=== PATIENT | female | born 1995 | race Caucasian/White ===

== ENCOUNTER 2018-11-04 14:21 | Emergency (ER) | payer OTHER | END 2018-11-04 17:05 | disposition home or self-care (01) | LOC: ERS 14:21 | DX: R51 Headache (principal) | CPT/HCPCS: 99283 ==

== ENCOUNTER 2019-03-23 20:42 | Emergency (ER) | payer BC, SELFPAY ==
[2019-03-23 21:19] LABS: #Eosinphils 0.1 thou/uL (0.0-0.7); #Lymphocytes 2.7 thou/uL (1.20-3.40); #Monocytes 0.7 thou/uL (0.11-0.59); #Neutrophils 6.8 thou/uL (1.40-6.50); %Basophils 0.3 % (0.0-1.0); %Eosinophils 1.3 % (0.0-10.0); %Lymphocytes 25.8 % (21.0-51.0); %Neutrophils 65.7 % (42.0-75.0); Hemoglobin 12.8 g/dL (12.0-16.0); Mean Corpuscular HGB CONC 33.1 g/dL (32.0-36.0); Mean Corpuscular Volume 90.6 fL (78.0-98.0); Mean Platelet Volume 8.4 fL (7.4-10.4); Platelet Count 230 thou/uL (130-400); RBC Distribution Width 12.2 % (11.5-14.5); Red Blood Cell (RBC) Count 4.27 mill/uL (4.20-5.40); White Blood Cell (WBC) Count 10.3 thou/uL (4.8-10.8)
[2019-03-23] MEDS ORDERED: Mag-Al 1200 mg/1200 mg/30 ML UDCUP ONE (21:46)
[2019-03-23] MEDS ORDERED: Lidocaine Viscous Sol 2% 15 ml UD Cup ONE (21:46)
[2019-03-23 21:58] LABS: ALT (SGPT) 48 U/L (8-55); AST (SGOT) 60 U/L (5-34); Albumin 4.3 g/dL (3.5-5.0); Alkaline Phosphatase 84 U/L (40-110); Anion Gap 15 mmol/L (10-20); Bilirubin, Total 0.5 mg/dL (0.2-1.2); Calc. Creatinine Clearance 0 mL/min (70-130); Calcium 9.2 mg/dL (7.8-10.44); Carbon Dioxide 24 mmol/L (22-29); Chloride 105 mmol/L (98-107); Estimated GFR-MDRD 86; Globulin 3.2 g/dL (2.4-3.5); Glucose 124 mg/dL (70-105); Lipase 18 U/L (8-78); Potassium 3.5 mmol/L (3.5-5.1); Protein, Total 7.5 g/dL (6.0-8.3); Sodium 140 mmol/L (136-145)
[2019-03-23 22:37] LABS: BUN (Urea Nitrogen) 11 mg/dL (7.0-18.7)
== END 2019-03-23 22:26 | disposition home or self-care (01) ==
LOC: ERS 20:42
DX: R10.13 Epigastric pain (principal)
CPT/HCPCS: 36415; 80053; 83690; 85025; 93005

== ENCOUNTER 2019-07-06 17:30 | Emergency (ER) | payer BC, SELFPAY | END 2019-07-06 18:29 | disposition home or self-care (01) | LOC: ERS 17:30 | DX: O99.89 Other specified diseases and conditions complicating pregnancy, childbirth and the puerperium (principal); R51 Headache; O99.611 Diseases of the digestive system complicating pregnancy, first trimester; K21.9 Gastro-esophageal reflux disease without esophagitis; Z3A.12 12 weeks gestation of pregnancy | CPT/HCPCS: 99283 ==

== ENCOUNTER 2019-07-23 14:38 | Emergency (ER) | payer SELFPAY ==
[2019-07-23 15:38] LABS: #Eosinphils 0.1 thou/uL (0.0-0.7); #Lymphocytes 2.3 thou/uL (1.20-3.40); #Monocytes 0.6 thou/uL (0.11-0.59); #Neutrophils 9.1 thou/uL (1.40-6.50); %Basophils 0.1 % (0.0-1.0); %Eosinophils 0.8 % (0.0-10.0); %Lymphocytes 18.8 % (21.0-51.0); %Monocytes 4.7 % (0.0-10.0); %Neutrophils 75.7 % (42.0-75.0); Hemoglobin 12.5 g/dL (12.0-16.0); Mean Corpuscular HGB CONC 32.9 g/dL (32.0-36.0); Mean Corpuscular Hemoglobin 30.3 pg (27.0-31.0); Mean Corpuscular Volume 92.2 fL (78.0-98.0); Platelet Count 214 thou/uL (130-400); RBC Distribution Width 12.2 % (11.5-14.5); Red Blood Cell (RBC) Count 4.11 mill/uL (4.20-5.40)
[2019-07-23 15:55] LABS: ALT (SGPT) 17 U/L (8-55); AST (SGOT) 17 U/L (5-34); Albumin 3.9 g/dL (3.5-5.0); Alkaline Phosphatase 69 U/L (40-110); Anion Gap 14 mmol/L (10-20); BUN (Urea Nitrogen) 10 mg/dL (7.0-18.7); Bilirubin, Total 0.3 mg/dL (0.2-1.2); Calc. Creatinine Clearance 0 mL/min (70-130); Calcium 9.6 mg/dL (7.8-10.44); Carbon Dioxide 21 mmol/L (22-29); Chloride 104 mmol/L (98-107); Estimated GFR-MDRD Greater than 90; Globulin 3.4 g/dL (2.4-3.5); Glucose 128 mg/dL (70-105); Lipase 31 U/L (8-78); Potassium 3.9 mmol/L (3.5-5.1); Protein, Total 7.3 g/dL (6.0-8.3); Sodium 135 mmol/L (136-145)
--- NOTE | 2019-07-23 15:59 | ULT ---
Sonogram right upper quadrant HISTORY: Right upper quadrant pain. FINDINGS: Normal gallbladder not seen. At the gallbladder fossa, an echogenicity is present with post erior shadowing. This could represent the duodenum/gas or a gallbladder contracted around shadowing stones. No gallbladder wall thickening or pericholecystic fluid. Common duct is 0.3 cm. Liver is unremarkable without focal mass or intrahepatic biliary dilatation. No free fluid. IMPRESSION : Abnormality at the gallbladder fossa is were favored to represent gallstones within a nondistended ga llbladder. No evidence of acute biliary obstruction.
--- NOTE | 2019-07-26 13:49 | EKG ---
Test Reason : EPIGASTRIC PAIN Blood Pressure : / mmHG Vent. Rate : 102 BPM Atrial Rate : 102 BPM P-R Int : 146 ms QRS Dur : 078 ms QT Int : 352 ms P-R-T Axes : 000 165 158 degrees QTc Int : 458 ms Sinus tachycardia Right axis deviation Abnormal ECG Confirmed by JESSE HERCULES, SIVAKUMAR ([id number]), graphics editor LUDA HENRIQUEZ ([id number]) on 07/26/2019 1:48:27 PM [facility] Confirmed By:SIVAKUMAR MOLINA MD
== END 2019-07-23 16:32 | disposition home or self-care (01) ==
LOC: ERS 14:38
DX: O99.611 Diseases of the digestive system complicating pregnancy, first trimester (principal); K80.80 Other cholelithiasis without obstruction; K21.9 Gastro-esophageal reflux disease without esophagitis; Z3A.13 13 weeks gestation of pregnancy
CPT/HCPCS: 36415; 76705; 80053; 83690; 85025; 93005; 94760; 96360

== ENCOUNTER 2019-10-27 20:34 | Day surgery (SDC) | payer SELFPAY ==
[2019-10-27 21:54] VITALS: BP 111/66; TEMP 98.6; BMI 48.0
[2019-10-27] MEDS ORDERED: hydrALAZINE 20 MG/ML VIAL SLOW IVP PRN (21:57)
--- NOTE | 2019-10-27 23:44 | PDOC.LDHP ---
Labor and Delivery H&P Chief complaint: loss of fluid HPI: 23 y/o @ 26.5 wks presents after sudden LOF per vagina at 12 today. she states she was taking a nap when suddenly she had a gush of fluids per vagina. she does not know if this was urine or ROM. she states it did not smell of urine. Pt denies nay further leaking of fluids per vagina after this event. denies vag bleeding, vag discharge/irritation/pain. last intercourse was >24 hours ago and pt and partner state any time between 3- 5 days ago, but for sure not in the last 24 hours. reports good movements. c/o cramping located over lower abdomen that radiates straight down. Denies Vazquez, CP, SOB, fevers. PCP: Dr. Maguire. Current gestational age (weeks): 26 (5 days ) Grav: 2 Para: 1 OB History Details: Preg #1: 4 years ago @ 37 wks Current complications: none Past Medical History: idiopathic intracranial HTN Cholelithiasis Current medications: pre- vitamins Previous surgical history: none Allergies/Adverse Reactions: Allergies Allergy/AdvReac Type Severity Reaction Status Date / Time amoxicillin Allergy Verified 07/07/19 14:42 Social history: none - Physical Exam Vital signs reviewed and normal: yes General: NAD, resting, breathing through contractions Heart: RRR Lungs: CTAB Abdomen: gravid Extremeties: no edema FHT: variability present Amery contractions every: non present on TOCO - Vaginal Exam cm dilated: 0 Effacement: 0% Station: -3 - OB Labs GBS: positive (UTI colonized in current ) - Assessment 23 y/o @ 26.5 wk 1. sIUP @ 26.5 wks - no ccx on 20 minute - 20 min fht strip reassuring. 2. Objective LOF - FFN ordered. collected VP3, Gc/C. will f/u with results - Sterile spec exam performed: no pooling of fluids on valsalva, yellow d/c. - not suspecting ROM. will f/u with pt on results. 3. lower abd pain with cramping - UA with reflex ccx - will f/u on results and ccx Dispo: will d/c home and follow up on results via phone. low clinical suspicion for PPROM. Care plan discussed with Dr. Paul, who is in agreement with above stated plan. Addendum - Attending - Attending Attestation Date/Time: 10/30/19 7240 I personally evaluated the patient and discussed the management with Dr. Todd I agree with the History, Examination, Assessment and Plan documented above with any addition or exceptions noted below. FFN, UA, VP3 NEg. Pt has been called and results shared.
[2019-10-28 00:34] LABS: FFN Internal QC Analyzer PASS (PASS); FFN Internal QC Cassette PASS (PASS); Fetal Fibronectin Negative (Negative)
[2019-10-28 00:47] LABS: Bacteria/HPF None Seen HPF (None Seen); Bilirubin Negative (Negative); Blood, Urine Negative (Negative); Clarity Clear (Clear); Glucose, Urine (Dipstick) Normal (Negative); Ketone, Urine Negative (Negative); Leukocyte Negative Leu/uL (Negative); Nitrite Negative (Negative); Protein, Urine (Dipstick) 10 mg/dL (Neg-Trace); RBC/HPF 0-3 HPF (0-3); Specific Gravity, Urine 1.025 (1.002-1.036); Squamous Epithelial 0-3 HPF (0-3); Urobilinogen Normal mg/dL (Less than 2)
[2019-10-28 00:49] LABS: Urine Culture Reflex Yes Yes
--- NOTE | 2019-10-28 01:23 | PDOC.BPN ---
- Brief Progress Note care plan discussed with Dr. Paul, who opted to d/c pt home with f/u on results of FFN, UA, VP3, GC/C. Pt d/c home in good condition. return precautions given. f/u with pcp in 2-3 days.
== END 2019-10-28 00:40 | disposition home or self-care (01) ==
LOC: L&D/OP 20:34
PROVIDERS: ATTEND Obstetrics & Gynecology
DX: O99.89 Other specified diseases and conditions complicating pregnancy, childbirth and the puerperium (principal); N89.8 Other specified noninflammatory disorders of vagina; R10.30 Lower abdominal pain, unspecified; O99.820 Streptococcus B carrier state complicating pregnancy; Z3A.26 26 weeks gestation of pregnancy; Z88.0 Allergy status to penicillin
CPT/HCPCS: 81001; 82731; 87086; 87480; 87491; 87510; 87591; 87660

== ENCOUNTER 2020-01-17 07:31 | Inpatient (IN) | payer OTHER ==
[2020-01-17 08:08] VITALS: BMI 50.4
[2020-01-17] MEDS ORDERED: Ondansetron PF 4 MG/2 ML Vial IVP PRN ×4 (08:27→14:33)
[2020-01-17] MEDS ORDERED: Butorphanol Tartrate 1 MG/ML VIAL SLOW IVP PRN (08:27)
[2020-01-17] MEDS ORDERED: Methylergonovine 0.2 MG/ML VIAL IM PRN (08:27)
[2020-01-17] MEDS ORDERED: Carboprost 250 MCG/ML AMP IM PRN (08:27)
[2020-01-17] MEDS ORDERED: Misoprostol 200 MCG TAB PR PRN (08:27)
[2020-01-17] MEDS ORDERED: NS / Oxytocin 40 units/1000ml 1,000 ML IV PRN (08:27)
[2020-01-17] MEDS ORDERED: Acetaminophen 500 MG TAB PO PRN (08:27)
[2020-01-17] MEDS ORDERED: Diphenoxylate HCl/Atropine Tablet PO PRN ×2 (08:27)
[2020-01-17] MEDS ORDERED: Lidocaine 1% (PF) 30 ML VIAL SC PRN (08:27)
[2020-01-17] MEDS ORDERED: hydrALAZINE 20 MG/ML VIAL SLOW IVP PRN ×2 (08:27→14:33)
[2020-01-17] MEDS ORDERED: Promethazine HCl 25 MG/ML VIAL IM PRN ×3 (08:27→10:20)
[2020-01-17] MEDS ORDERED: HYDROcodone/Acetaminophen 5/325 mg Tablet PO PRN ×4 (08:27→14:33)
[2020-01-17] MEDS ORDERED: Ibuprofen 800 MG TAB PO PRN (08:27)
[2020-01-17] MEDS: Lactated Ringer's 1,000 ML IV SCH ×2 (08:36→10:13)
[2020-01-17] MEDS ORDERED: NS w/ Oxytocin 10 units 500 ML IV SCH (08:45)
[2020-01-17] MEDS ORDERED: Clindamycin/D5W 900 mg/50 ml Premix Bag ONE (09:10)
[2020-01-17 09:31] LABS: Hemoglobin 12.2 g/dL (12.0-16.0); Mean Corpuscular HGB CONC 33.8 g/dL (32.0-36.0); Mean Corpuscular Hemoglobin 30.8 pg (27.0-31.0); Mean Corpuscular Volume 91.1 fL (78.0-98.0); Mean Platelet Volume 9.6 fL (7.4-10.4); Platelet Count 169 thou/uL (130-400); RBC Distribution Width 13.3 % (11.5-14.5); Red Blood Cell (RBC) Count 3.96 mill/uL (4.20-5.40); White Blood Cell (WBC) Count 12.6 thou/uL (4.8-10.8)
[2020-01-17] MEDS ORDERED: Fentanyl 4 mcg/Bup 0.1% Cadd 100 ML ONE (09:42)
[2020-01-17 10:17] LABS: Syphilis Antibody Nonreactive (Nonreactive); Syphilis Antibody Index 0.05 S/CO (<1.00 Non-Reactive)
[2020-01-17 10:18] LABS: HBSAg Index 0.16 S/CO (0-0.99); Hep B Surf Ag Non-Reactive S/CO (NonReactive)
[2020-01-17] MEDS ORDERED: Naloxone HCl 0.4 mg/ml Vial IVP PRN ×2 (10:20)
[2020-01-17] MEDS ORDERED: diphenhydrAMINE 50 MG/ML VIAL IM PRN (10:20)
[2020-01-17] MEDS ORDERED: diphenhydrAMINE 25 MG CAP PO PRN ×2 (10:20→14:33)
[2020-01-17] MEDS ORDERED: Naloxone HCl 0.4 mg/ml Vial IV PRN (10:20)
[2020-01-17] MEDS ORDERED: Acetaminophen 325 MG TAB PO PRN (10:20)
[2020-01-17] MEDS ORDERED: Lactated Ringer's 500 ML IV PRN (10:20)
[2020-01-17] MEDS ORDERED: Zolpidem Tartrate 5 MG TAB PO PRN ×2 (10:20→14:33)
[2020-01-17] MEDS ORDERED: diphenhydrAMINE 50 MG/ML VIAL IVP PRN ×2 (10:20)
[2020-01-17] MEDS ORDERED: EPHEDRINE 25 MG/5 ML SYRINGE SLOW IVP PRN (10:20)
[2020-01-17] MEDS ORDERED: Fentanyl 4 mcg/Bupivacaine 0.1% Cassette 100 ML EPIDURAL SCH (10:30)
[2020-01-17] MEDS ORDERED: Communication Order-Pharmacy FS PRN (10:30)
[2020-01-17] MEDS ORDERED: Communication Order-Pharmacy FS SCH (10:30)
[2020-01-17] MEDS ORDERED: Bupivacaine 0.25% HCL 30 ML VIAL ONE (11:30)
[2020-01-17] MEDS ORDERED: Clindamycin/D5W 900 MG in Premix Bag 1 BAG IVPB SCH (12:00)
[2020-01-17] MEDS ORDERED: Bisacodyl 10 MG SUPP PR PRN (14:33)
[2020-01-17] MEDS ORDERED: Milk Of Magnesia 30 ML UDCUP PO PRN (14:33)
[2020-01-17] MEDS ORDERED: Benzocaine-Menthol 82.5 ML CAN TOP PRN (14:33)
[2020-01-17] MEDS ORDERED: Misoprostol 200 MCG TAB VAG PRN (14:33)
[2020-01-17] MEDS ORDERED: Lanolin Ointment 7 GM TUBE TOP PRN (14:33)
[2020-01-17] MEDS ORDERED: Preparation H Ointment 28 GM TUBE PR PRN (14:33)
[2020-01-17] MEDS ORDERED: NS / Oxytocin 40 units/1000ml 1,000 ML IV SCH (14:45)
[2020-01-17] MEDS: Ferrous Sulfate 325 MG TAB PO SCH (18:04)
[2020-01-17] MEDS: Docusate Calcium (SURFAK) 240 MG CAP PO SCH (22:09)
[2020-01-17] MEDS: Ibuprofen 800 MG TAB PO SCH (22:09)
[2020-01-18] MEDS: Ibuprofen 800 MG TAB PO SCH ×2 (06:01→14:26)
[2020-01-18 06:42] LABS: Hemoglobin 12.2 g/dL (12.0-16.0); Mean Corpuscular HGB CONC 34.2 g/dL (32.0-36.0); Mean Corpuscular Hemoglobin 31.3 pg (27.0-31.0); Mean Corpuscular Volume 91.5 fL (78.0-98.0); Platelet Count 166 thou/uL (130-400); RBC Distribution Width 13.5 % (11.5-14.5); White Blood Cell (WBC) Count 12.3 thou/uL (4.8-10.8)
[2020-01-18] MEDS ORDERED: Prenatal Vitamin 1 TAB PO SCH (09:00)
[2020-01-18] MEDS: Docusate Calcium (SURFAK) 240 MG CAP PO SCH (09:03)
[2020-01-18] MEDS: Ferrous Sulfate 325 MG TAB PO SCH (09:06)
[2020-01-18 11:43] VITALS: BP 116/57; TEMP 98.5
[2020-01-18] MEDS ORDERED: Adacel (T-DAP) 0.5 ML SYRINGE IM ONE (14:33)
== END 2020-01-18 16:15 | disposition home or self-care (01) | DRG 806 ==
LOC: L&D/OP 07:31 → L&D 08:27 → 3SE 16:40
PROVIDERS: ADMIT Obstetrics & Gynecology; ATTEND Obstetrics & Gynecology
PROC: 10D07Z6 Extraction of Products of Conception, Vacuum, Via Natural or Artificial Opening (ICD-10-PCS; principal; 2020-01-17)
PROC: 10907ZC Drainage of Amniotic Fluid, Therapeutic from Products of Conception, Via Natural or Artificial Opening (ICD-10-PCS; 2020-01-17)
PROC: 0HQ9XZZ Repair Perineum Skin, External Approach (ICD-10-PCS; 2020-01-17)
DX: O24.429 Gestational diabetes mellitus in childbirth, unspecified control (principal); O98.82 Other maternal infectious and parasitic diseases complicating childbirth; Z37.0 Single live birth; O70.0 First degree perineal laceration during delivery; B95.1 Streptococcus, group B, as the cause of diseases classified elsewhere; Z3A.39 39 weeks gestation of pregnancy
CPT/HCPCS: 36415; 36416; 51702; 85027; 86780; 86850; 86900; 86901; 87340; 87635; 99285; J2001; J2405; J2590; J3490; S0020; U0003

== ENCOUNTER 2021-06-18 14:34 | Emergency (ER) | payer SELFPAY ==
[2021-06-18] MEDS ORDERED: Acetaminophen 500 MG TAB ONE (17:34)
[2021-06-18 18:18] LABS: Bilirubin Negative (Negative); Blood, Urine Negative (Negative); Clarity Clear (Clear); Glucose, Urine (Dipstick) Normal (Negative); Ketone, Urine Negative (Negative); Leukocyte 25 Leu/uL (Negative); Nitrite Negative (Negative); Protein, Urine (Dipstick) 10 mg/dL (Neg-Trace); RBC/HPF 0-3 HPF (0-3); Specific Gravity, Urine 1.024 (1.002-1.036); WBC/HPF 0-3 HPF (0-3)
[2021-06-18 18:19] LABS: Bacteria/HPF 1+ HPF (None Seen)
[2021-06-18 18:20] LABS: Pregnancy Test - Urine (BHCG) Negative (Negative); Pregu Control Background? CLEAR/WHITE (CLR/WHITE); Pregu Control Bar Appear? YES (CONTROL BAR); Specific Gravity 1.024 (1.002-1.036)
== END 2021-06-18 18:47 | disposition home or self-care (01) ==
LOC: ERS 14:34
DX: J10.1 Influenza due to other identified influenza virus with other respiratory manifestations (principal); K21.9 Gastro-esophageal reflux disease without esophagitis; G43.909 Migraine, unspecified, not intractable, without status migrainosus; I10 Essential (primary) hypertension
CPT/HCPCS: 81003; 81015; 81025; 87804; 99283

== ENCOUNTER 2022-02-19 10:47 | Outpatient (CLI) | payer OTHER | END 2022-02-19 10:48 | disposition home or self-care (01) | LOC: DTY/OP 10:47 | PROVIDERS: ATTEND Surgery | DX: E66.01 Morbid (severe) obesity due to excess calories (principal); Z68.39 Body mass index [BMI] 39.0-39.9, adult | CPT/HCPCS: 97802 ==

== ENCOUNTER 2022-03-06 12:50 | Emergency (ER) | payer OTHER ==
[~2022-03-06 12:50] MED LIST: Iopamidol-370 76% 500 ML 1 ML ONE
[2022-03-06] MEDS ORDERED: Ketorolac Tromethamine 30 MG/ML VIAL ONE (14:23)
[2022-03-06] MEDS ORDERED: Metoclopramide HCl 10 MG/2 ML VIAL ONE (14:23)
[2022-03-06] MEDS ORDERED: diphenhydrAMINE 50 MG/ML VIAL ONE (14:23)
[2022-03-06 14:29] LABS: #Eosinphils 0.2 thou/uL (0.0-0.7); #Lymphocytes 1.7 thou/uL (1.20-3.40); #Monocytes 0.9 thou/uL (0.11-0.59); #Neutrophils 14.4 thou/uL (1.40-6.50); %Basophils 0.1 % (0.0-1.0); %Eosinophils 1.3 % (0.0-10.0); %Lymphocytes 9.9 % (21.0-51.0); %Neutrophils 83.8 % (42.0-75.0); Hemoglobin 13.2 g/dL (12.0-16.0); Mean Corpuscular HGB CONC 32.9 g/dL (32.0-36.0); Mean Corpuscular Hemoglobin 31.5 pg (27.0-31.0); Mean Corpuscular Volume 95.5 fl (78.0-98.0); Mean Platelet Volume 8.5 fL (7.4-10.4); Platelet Count 210 10x3/uL (130-400); RBC Distribution Width 11.5 % (11.5-14.5); White Blood Cell (WBC) Count 17.2 10x3/uL (4.8-10.8)
[2022-03-06 14:41] LABS: BHCG - Serum Negative (NEGATIVE); Pregs Control Background? CLEAR/WHITE (CLR/WHITE); Pregs Control Bar Appear? YES (CONTROL BAR)
[2022-03-06 14:50] LABS: ALT (SGPT) 14 U/L (8-55); AST (SGOT) 13 U/L (5-34); Albumin 4.7 g/dL (3.5-5.0); Alkaline Phosphatase 89 U/L (40-110); Anion Gap 12 mmol/L (10-20); BUN (Urea Nitrogen) 9 mg/dL (7.0-18.7); Bilirubin, Total 0.6 mg/dL (0.2-1.2); Calc. Creatinine Clearance 0 mL/min (70-130); Calcium 9.4 mg/dL (7.8-10.44); Carbon Dioxide 27 mmol/L (22-29); Chloride 103 mmol/L (98-107); Estimated GFR 111; Globulin 3.7 g/dL (2.4-3.5); Glucose 99 mg/dL (70-105); Potassium 4.1 mmol/L (3.5-5.1); Protein, Total 8.4 g/dL (6.0-8.3); Sodium 138 mmol/L (136-145)
[2022-03-06] MEDS ORDERED: Clindamycin/D5W 900 mg/50 ml Premix Bag ONE (15:30)
[2022-03-06] MEDS ORDERED: Dexamethasone 10 MG/ML VIAL ONE (15:30)
== END 2022-03-06 16:04 | disposition home or self-care (01) ==
LOC: ERS 12:50
DX: J02.9 Acute pharyngitis, unspecified (principal); R59.1 Generalized enlarged lymph nodes; K21.9 Gastro-esophageal reflux disease without esophagitis; I10 Essential (primary) hypertension
CPT/HCPCS: 70450; 70491; 80053; 84703; 85025; 87430; 96365; 96367; 96375; J1100; J1200; J1885; J2765; J3490; Q9967

== ENCOUNTER 2022-04-28 15:11 | Outpatient (CLI) | payer OTHER | END 2022-04-28 15:12 | disposition home or self-care (01) | LOC: DTY/OP 15:11 | PROVIDERS: ATTEND Surgery | DX: E66.01 Morbid (severe) obesity due to excess calories (principal) | CPT/HCPCS: 97802 ==